=== PATIENT | female | born 1955 | race Caucasian/White ===

== ENCOUNTER 2021-02-01 11:14 | Observation (INO) | payer OTHER ==
[~2021-02-01] VITALS: Ht 162.6 cm; Wt 111.6 kg
[~2021-02-01 11:14] MED LIST: DARVOCET-N 1001 EAC1 PO; OXYCODONE HCL5 M1 PO
[2021-02-01 11:18] VITALS: BP 137/86
[2021-02-01] MEDS ORDERED: CARVEDILOL6.25 M1 PO (11:27)
[2021-02-01] MEDS ORDERED: LISINOPRIL20 MG PO (11:27)
[2021-02-01] MEDS ORDERED: ROSUVASTATIN CA10 MG PO (11:28)
[2021-02-01] MEDS ORDERED: LEVO-T25 MCG PER TUBE (11:28)
[2021-02-01] MEDS ORDERED: VITAMIN D310 MC2 PO (11:28)
[2021-02-01] MEDS ORDERED: ASA81BEC PO (11:29)
[2021-02-01] MEDS ORDERED: VITAMIN B COMP1 EACH PO (11:29)
[2021-02-01] MEDS ORDERED: SUPER THERAVIT1 EACH PO (11:29)
[2021-02-01] MEDS ORDERED: ZETIA10 MG PO (12:54)
[2021-02-01 13:56] LABS: ABSOLUTE EOSINOPHILS 0.2 thou/uL (0.0-0.7); ABSOLUTE LYMPHOCYTES 1.2 thou/uL (0.8-5.3); ABSOLUTE MONOCYTES 0.4 thou/uL (0.0-1.2); ABSOLUTE NEUTROPHILS 5.6 thou/uL (1.6-8.1); BASOPHILS 0.1 %; EOSINOPHILS 2.1 %; HEMOGLOBIN 10.5 gm/dL (12.0-15.0); LYMPHOCYTES 15.6 %; MCH 25.5 pg (26.0-34.0); MCHC 31.9 g/dL (28.0-37.0); MONOCYTES 5.9 %; NUCLEATED RBCS 0 /100WBC; PLATELET COUNT* 172 thou/uL (150-400); POLYS 76.3 %; RBC 4.12 mil/uL (4.20-5.00); RDW-CV 16.3 % (10.5-14.5); WBC 7.4 thou/uL (4.0-11.0)
[2021-02-01 14:06] LABS: CALCIUM 8.6 mg/dL (8.5-10.1); CREATININE 0.7 mg/dL (0.6-1.3); POTASSIUM 3.6 mmol/L (3.5-5.1)
[2021-02-01 14:16] LABS: ALBUMIN 3.4 g/dL (3.4-5.0); MAGNESIUM 2.1 mg/dL (1.8-2.4); TOTAL BILIRUBIN 0.5 mg/dL (<0.1-1.0); TOTAL PROTEIN 7.6 g/dL (6.4-8.2)
--- NOTE | 2021-02-01 14:24 | EKG ---
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1955 Requested By: Jordin Granados Order Number: [id number] MD: Craig Alvarez Measurements Intervals [place] Rate: 64 P: -22 AR: 161 QRS: 4 QRSD: 120 T: -1 QT: 561 QTc: 579 Interpretive Statements Sinus rhythm IVCD, consider atypical RBBB Probable left ventricular hypertrophy Prolonged QT interval Baseline wander in lead(s) V3 No previous ECG available for comparison Electronically Signed On 02-01-2021 14:24:36 DISABILITY EXAMINER by Craig Alvarez [email or web address] <ELECTRONICALLY SIGNED> By: Craig Alvarez MD, [facility] 02/01/21 1424 1118 1118 Craig Alvarez MD, [facility] /EPI
[2021-02-01 20:39] VITALS: BP 143/63
[2021-02-02] VITALS (7 sets, daily range): BP systolic 130–180; BP diastolic 60–89
[2021-02-02 10:03] LABS: CHOLESTEROL 89 mg/dL (<200); HDL CHOLESTEROL 34 mg/dL (>40); LDL CHOLESTEROL 40 mg/dL (<100); TC:HDL 2.6 Ratio (Not establshd); TRIGLYCERIDE 79 mg/dL (<150); VLDL 16 mg/dL (<40)
[2021-02-02 10:04] LABS: SERUM ASSESSMENT Clear
--- NOTE | 2021-02-02 12:48 | 2DMMODE ---
[place] [address] 2 D/M-MODE ECHOCARDIOGRAM Name: PRIYANKA BENNETT Room: [address] Ni Szymanski#: [id number] Admission: 02/01/21 Attend Phys: Raven Mckeon Discharge: Date of : 57 Date of Service: 02/02/21 1247 Report #: [id number] THIS REPORT FOR: cc: JAG SILVA RN BAGGAGE AGENT JAG SILVA RN BAGGAGE AGENT Craig Alvarez MD [facility] ~ APPROVED REPORT Study performed: 02/02/2021 11:25:13 EXAM: Comprehensive 2D, Doppler, and color-flow Echocardiogram Patient Location: In-Patient Room #: [facility] Status: routine BSA: 2.14 HR: 63 bpm BP: 130/60 mmHg Rhythm: NSR Other Information Study Quality: Good Indications Chest Pain 2D Dimensions IVSd: 12.81 (7-11mm) LVOT Diam: 20.26 (18-24mm) LVDd: 72.87 mm PWd: 11.72 (7-11mm) Ascending Ao: 34.58 (22-36mm) LVDs: 54.97 (25-40mm) Aortic Root: 31.55 mm Volumes Left Atrial Volume (Systole) LA ESV Index: 71.70 mL/m2 Aortic Valve AoV Peak Rebel.: 1.60 m/s AO Peak Gr.: 10.22 mmHg LVOT Max P.87 mmHg AO Mean Gr.: 5.53 mmHg LVOT Mean P.53 mmHg LVOT Max V: 1.40 m/s AO V2 VTI: 31.24 cm LVOT Mean V: 0.86 m/s ROMAN (VTI): 3.03 cm2 LVOT V1 VTI: 29.36 [place] [address] 2 D/M-MODE ECHOCARDIOGRAM Name: PRIYANKA BENNETT Room: [address] MDiamondRDiamond#: [id number] Admission: 02/01/21 Attend Phys: Raevn Mckeon Discharge: Date of : 57 Date of Service: 02/02/21 1247 Report #: [id number] Mitral Valve E/A Ratio: 3.11 MV Decel. Time: 173.19 ms MV E Max Rebel.: 1.25 m/s MV PHT: 50.22 ms MVA (PHT): 4.38 cm2 TDI E/Lateral E': 12.50 E/Medial E': 17.86 Medial E' Rebel.: 0.07 m/s Lateral E' Rebel.: 0.10 m/s Pulmonary Valve PV Peak Rebel.: 1.10 m/s PV Peak Gr.: 4.84 mmHg Tricuspid Valve RAP Estimate: 5.00 mmHg TR Peak Gr.: 43.83 mmHg RVSP: 48.00 mmHg PA Pressure: 48.00 mmHg Left Ventricle The left ventricle is normal size. There is normal LV segmental wall motion. Mild concentric left ventricular hypertrophy. Left ventricular systolic function is mildly decreased. LVEF is 45-50%. Grade IV - fixed restrictive diastolic dysfunction. Right Ventricle Right ventricle is mildly dilated. The right ventricular systolic function is normal. Atria Left atrium is moderately dilated. Right atrium is mildly dilated. Aortic Valve Mild aortic valve sclerosis. Trace aortic regurgitation. There is no aortic valvular stenosis. Mitral Valve The mitral valve is normal in structure. Moderate mitral regurgitation. No evidence of mitral valve stenosis. Tricuspid Valve The tricuspid valve is normal in structure. Mild to moderate tricuspid regurgitation. Moderate [place] [address] 2 D/M-MODE ECHOCARDIOGRAM Name: PRIYANKA BENNETT Room: [address] Ni Szymanski#: [id number] Admission: 02/01/21 Attend Phys: Raven Mckeon Discharge: Date of : 57 Date of Service: 02/02/21 1247 Report #: [id number] Pulmonic Valve The pulmonary valve is normal in structure. Mild pulmonic regurgitation. Great Vessels The aortic root is normal in size. IVC is normal in size and collapses >50% with inspiration. Pericardium There is no pericardial effusion. <Conclusion> The left ventricle is normal size. Mild concentric left ventricular hypertrophy. Left ventricular systolic function is mildly decreased. LVEF is 45-50%. Right ventricle is mildly dilated. The right ventricular systolic function is normal. Left atrium is moderately dilated. Right atrium is mildly dilated. Mild aortic valve sclerosis. Trace aortic regurgitation. There is no aortic valvular stenosis. The mitral valve is normal in structure. Moderate mitral regurgitation. The tricuspid valve is normal in structure. Mild to moderate tricuspid regurgitation. Moderate pulmonary hypertension. IVC is normal in size and collapses >50% with inspiration. There is no pericardial effusion. There is normal LV segmental wall motion. <ELECTRONICALLY SIGNED> By: Craig Alvarez MD, FACC 02/02/21 1247 46 [id number] Craig Alvarez MD, FACC /INF
--- NOTE | 2021-02-02 15:19 | CON ---
[address] [address] CONSULTATION Name: PRIYANKA BENNETT Room: [address] Ni Szymanski#: [id number] Admission: 02/01/21 Attend Phys: Ana Singh Discharge: Date of : 57 Report #: [id number] THIS REPORT FOR: cc: JAG SILVA RN SMOCKING MACHINE OPERATOR JAG SILVA RN SMOCKING MACHINE OPERATOR Oliver Reddy MD [facility] ~ cc: Brenda Waite MD DATE OF CONSULTATION: 02/02/2021 CARDIOLOGY CONSULTATION INDICATION: Chest pain. HISTORY OF PRESENT ILLNESS: The patient is a very pleasant 65-year-old white female who is well known to myself. She has a history of 5-vessel coronary artery bypass grafting at [facility] in 2008. At that time, she had a CUMMINS graft to the LAD, saphenous vein graft sequentially to the diagonal, ramus and obtuse marginal branch and an arterial graft to the right PDA. Catheterization in 2010 showed an occluded distal marginal branch and no intervention was undertaken at that time. Cardiac risk factors include hypertension, dyslipidemia and a history of tobacco use, which she quit in 2008 prior to her bypass surgery. She presents to the hospital with complaints of left upper chest wall pain radiating to the neck and around to the left breast. She has had associated shortness of breath with this. She describes this pain as being rather continuous for the last three days. She reports this is similar to some of the symptoms she had prior to her bypass surgery. She does state that there has been the absence of any "heartburn" which she experienced prior to her initial bypass surgery. Cardiac enzymes are unremarkable x 3. 12-lead EKG shows a sinus rhythm with nonspecific T-wave flattening without significant ST-segment abnormalities. At the time of interview, she continues to have some discomfort as well as a headache. She is without other cardiac complaint at this time. PAST MEDICAL HISTORY: 1. Coronary artery disease with 5-vessel coronary artery bypass grafting as outlined above. 2. Hypertension. 3. Dyslipidemia. 4. Rotator cuff repair, 2009. 5. Hysterectomy. 6. Thyroidectomy. 7. [place] [address] CONSULTATION Name: PRIYANKA BENNETT Room: [address] Stephon#: [id number] Admission: 02/01/21 Attend Phys: Ana Singh Discharge: Date of : 57 Report #: [id number] HOME MEDICATIONS: Carvedilol 6.25 mg p.o. b.i.d., lisinopril 20 mg p.o. daily, levothyroxine 125 mcg daily, rosuvastatin 10 mg daily, vitamin D3 10 mcg daily, B complex 1 tablet daily, enteric-coated aspirin 81 mg daily, multivitamin 1 tablet daily, Zetia 10 mg daily. ALLERGIES: None documented. SOCIAL HISTORY: The patient quit smoking prior to her bypass surgery. She does not drink alcohol. FAMILY HISTORY: Positive for stroke and heart disease. REVIEW OF SYSTEMS: 14-point review of systems positive for chest discomfort, neck pain, shortness of breath, joint pain and headache. Otherwise, unremarkable. PHYSICAL EXAMINATION: VITAL SIGNS: Stable. Blood pressure is 130/60 with a pulse of 65. Telemetry monitoring shows sinus rhythm. GENERAL: This is a pleasant female in no acute distress. HEENT: Head is normocephalic, atraumatic. Extraocular muscles intact. Mucous membranes are moist. NECK: Shows no jugular venous distention. I do not appreciate carotid bruit. CHEST: Reveals clear lung zamorano. CARDIAC: Reveals a regular rhythm with normal S1 and S2. I do not appreciate gallop or murmur. ABDOMEN: Reveals normal bowel sounds. The abdomen is soft and nontender. EXTREMITIES: Shows no edema. SKIN: Warm and dry. DIAGNOSTIC DATA: 12-lead EKG shows a sinus rhythm with nonspecific T-wave flattening. I do not appreciate acute ST or T-wave abnormalities. LABORATORY DATA: Reviewed. Sodium 147, potassium 3.6, chloride 107, bicarb 31, BUN 17, creatinine 0.7, serum glucose 104. LFTs are within normal limits. Troponins are 10, 11 and 10 sequentially. NT-proBNP is 626. White blood cell count 7.4, hemoglobin 10.5 with an MCV of 80.0, platelet count is 172,000. Chest x-ray shows possible mild pulmonary vascular congestion. Film somewhat under penetrated. Previous sternotomy noted. IMPRESSION AND RECOMMENDATIONS: 1. Chest discomfort in patient with history of coronary artery disease and prior bypass. Thus far, cardiac markers and EKG unremarkable. [address] [place] [address] CONSULTATION Name: PRIYANKA BENNETT Room: [address] Ni Szymanski#: [id number] Admission: 02/01/21 Attend Phys: Ana Singh Discharge: Date of : 57 Report #: [id number] stress testing has been ordered. Echocardiogram ordered to evaluate cardiac function. Further invasive evaluation pending the results of those studies. 2. Hypertension. Continue home medications as outlined above with adjustments as needed. 3. Dyslipidemia. Check fasting lipid profile. Consider adjustments to home regimen if her LDL remains above 70. 4. Hypothyroidism. On replacement. <ELECTRONICALLY SIGNED> By: Oliver Reddy MD, FACC 02/02/21 1519 0802 [id number] Reddy MD, FACC /nt
[2021-02-03] VITALS (7 sets, daily range): BP systolic 126–166; BP diastolic 57–90
[2021-02-03 08:32] LABS: ABSOLUTE EOSINOPHILS 0.1 thou/uL (0.0-0.7); ABSOLUTE LYMPHOCYTES 1.1 thou/uL (0.8-5.3); ABSOLUTE MONOCYTES 0.5 thou/uL (0.0-1.2); ABSOLUTE NEUTROPHILS 6.3 thou/uL (1.6-8.1); BASOPHILS 0.1 %; EOSINOPHILS 1.5 %; HEMATOCRIT 30.5 % (37.0-47.0); HEMOGLOBIN 9.7 gm/dL (12.0-15.0); LYMPHOCYTES 13.7 %; MCH 25.6 pg (26.0-34.0); MCHC 31.7 g/dL (28.0-37.0); MCV 80.8 fL (80.0-100.0); MONOCYTES 6.8 %; MPV 8.8 fl. (7.2-11.1); NUCLEATED RBCS 0 /100WBC; PLATELET COUNT* 155 thou/uL (150-400); POLYS 77.9 %; RBC 3.78 mil/uL (4.20-5.00); RDW-CV 16.3 % (10.5-14.5)
[2021-02-03 08:44] LABS: CALCIUM 8.4 mg/dL (8.5-10.1); CREATININE 0.6 mg/dL (0.6-1.3); POTASSIUM 3.6 mmol/L (3.5-5.1)
--- NOTE | 2021-02-03 19:39 | CARDNUC ---
[place] [address] CARDIAC NUCLEAR IMAGING REPORT Name: PRIYANKA BENNETT Room: [address] MDiamondRDiamond#: [id number] Admission: 02/01/21 Attend Phys: Raven Mckeon Discharge: Date of : 57 Date of Service: 02/03/211938 Report #: [id number] THIS REPORT FOR: cc: JAG SILVA RN, MEGAN MSN RN FNP Liston, Michael J. MD [facility] ~ APPROVED REPORT Imaging Protocol: Stress Tc-99m/Rest Tc-99m 2 days Study performed: 02/02/2021 08:51:00 Indication: Chest pain Patient Location: In-Patient Room #: 232 Stress Nurse: Jacqui Fritz RN Ht: 5 ft 4 in Wt: 246 lbs BSA: 2.14 m2 BMI: 42.22 Medical History Medical History: CAD s/p CABG, HTN, Hyperlipidemia Medications: LISINOPRIL, ZEIA, ASA, ATORVASTATIN Allergies: No known drug allergies Cardiac Risk Factors: Age Previous Cardiac Procedures: CABG Exercise History: Sedentary Resting Data Rest SPECT myocardial perfusion imaging was performed in supine position 30 minutes following the intravenous injection of 33.7 mCi of Tc-99m Sestamibi. Time of rest injection: Date: 02/02/2021 The images were gated to evaluate regional wall motion and calculate left ventricular ejection fraction. Administration Route: IV Pharmacologic Stress Pharmacologic stress test was performed by injecting Regadenoson 0.4 mg IV push over 10-15 seconds immediately followed by the intravenous injection of 35.2 mCi of Tc-99m Sestamibi. Time of stress injection: Date: 02/03/2021 Administration Route: IV Heart Rate at time of stress injection: 77 bpm. Gated Stress SPECT was performed 45 [place] [address] CARDIAC NUCLEAR IMAGING REPORT Name: PRIYANKA BENNETT Room: [address]#: [id number] Admission: 02/01/21 Attend Phys: Raven Mckeon Discharge: Date of : 57 Date of Service: 02/03/211938 Report #: [id number] injection. The images were gated to evaluate regional wall motion and calculate left ventricular ejection fraction. Stress Test Details Stress Test: Pharmacologic stress testing performed using 0.4 mg of regadenoson per 5 mL given IV over 10 seconds. HR Max Heart Rate (APMHR): 156 bpm Resting HR: 62 bpm Target HR (85% APMHR): 132 bpm Max HR Achieved: 79 bpm % of APMHR: 50 Recovery HR: 45 bpm BP Resting BP: 139/84 mmHg Max BP: 116/74 mmHg Recovery BP: 146/74 mmHg ECG Resting ECG: Sinus Rhythm Stress ECG: Sinus Rhythm ST Change: None Arrhythmia: None Recovery ECG: Sinus Rhythm Recovery ST Change: None Recovery Arrhythmia: None Clinical Reason for Termination: Completed protocol The patient tolerated Lexiscan infusion without significant cardiac symptoms. Nurse Comments pT GAIT UNSTEADY, CANNOT WALK ON TEADMILL Stress ECG Conclusion The baseline twelve-lead EKG shows sinus rhythm without significant ST segment abnormality. EKGs obtained during and post Lexiscan infusion show sinus rhythm with no significant ST segment changes when compared to baseline. There were no stress-induced arrhythmias. Study Quality Study: Good Artifact: [place] [address] CARDIAC NUCLEAR IMAGING REPORT Name: PRIYANKA BENNETT Room: [address]#: [id number] Admission: 02/01/21 Attend Phys: Raven Mckeon Discharge: Date of : 57 Date of Service: 02/03/21 1939 Report #: [id number] Study Data At rest, the left ventricular ejection fraction was 44%.. Post stress, the left ventricular ejection was 52%.. TID = 0.96. Perfusion Perfusion images show a moderate size severe intensity fixed defect involving the basal inferior wall consistent with prior infarct. No other significant fixed or reversible defects are identified. Wall Motion Global LV systolic function mildly decreased. There is akinesis of the basal inferior wall. The septum is hypokinetic consistent with prior bypass procedure. 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 Global LV systolic function mildly decreased. This is not a high risk study. <Conclusion> The baseline twelve-lead EKG shows sinus rhythm without significant ST segment abnormality. EKGs obtained during and post Lexiscan infusion show sinus rhythm with no significant ST segment changes when compared to baseline. There were no stress-induced arrhythmias. <ELECTRONICALLY SIGNED> By: Oliver Reddy MD, FACC 02/03/211938 38 38 Oliver Reddy MD, FACC /INF
== END 2021-02-03 19:00 | disposition home or self-care (01) ==
LOC: M.ERS 11:14 → M.TBA-ER 16:52 → M.2W 16:52
PROVIDERS: Emergency Medicine Emergency Medical Services; Internal Medicine; Internal Medicine Cardiovascular Disease; ADMIT Internal Medicine; ATTEND Internal Medicine
DX: R07.89 Other chest pain (principal); Z20.822 Contact with and (suspected) exposure to COVID-19; I25.10 Atherosclerotic heart disease of native coronary artery without angina pectoris; E66.01 Morbid (severe) obesity due to excess calories; E78.5 Hyperlipidemia, unspecified; I10 Essential (primary) hypertension; E03.9 Hypothyroidism, unspecified; Z90.710 Acquired absence of both cervix and uterus; Z98.890 Other specified postprocedural states; Z95.1 Presence of aortocoronary bypass graft; Z90.49 Acquired absence of other specified parts of digestive tract